=== PATIENT | male | born 1995 | race Hispanic/Latino ===

== ENCOUNTER 2022-12-20 21:26 | Emergency (ER) | payer SELFPAY ==
[2022-12-20 22:02] VITALS: BP 144/80; PULSE 88; RESP 15; TEMP 37.1; O2SAT 100
--- NOTE | 2022-12-21 02:10 | ED.GENADULT ---
HPI - General Adult General Chief complaint: Unspecified Stated complaint: whole body pain Time Seen by Provider: 12/21/22 01:47 Source: patient Mode of arrival: ambulatory Limitations: no limitations History of Present Illness HPI narrative: Patient is a 27-year-old male who presents ED with multiple complaints. Patient is a daily IV fentanyl user. He states he injects mostly into his upper arms. He buys the needles off of [employer]. He last used approximately 5 hours prior to arrival to the ED. Patient states he has not been feeling well over the last 2 to 3 days. He complains of intermittent dizziness described as though the room is spinning, intermittent chest pain, diffuse myalgias, chills, subjective fevers. He has not actually documented a fever. Denies any shortness of breath, nausea, vomiting. Denies cough or cold symptoms. Denies sick contacts. Patient states he is concerned he has a bacterial infection from using the drugs. He does complain of a chronic wound to his right lower leg which he reports is from injecting 3 months ago. Related Data Allergies Allergy/AdvReac Type Severity Reaction Status Date / Time No Known Allergies Allergy Verified 12/20/22 22:06 Review of Systems Review of Systems: CONSTITUTIONAL: See HPI. EYES: Denies visual changes, redness, or discharge. ENT: Denies rhinorrhea, congestion, sore throat, or otalgia. CARDIOVASCULAR: See HPI. RESPIRATORY: Denies cough or dyspnea. GASTROINTESTINAL: Denies abdominal pain, nausea, vomiting, or diarrhea. GENITOURINARY: Denies dysuria or hematuria. SKIN: See HPI. MUSCULOSKELETAL: Denies back pain, joint pain, or myalgia. NEUROLOGIC: See HPI. All systems reviewed & are unremarkable except as noted in HPI and below [facility] Social History Social History (Updated 12/21/22 @ 03:23 by Noelle Michelle PA-C) Substance use: current Substance use type: IV drugs Exam Narrative: GENERAL: Well appearing, thin, non-toxic, in no acute distress. HEAD: Normocephalic, atraumatic. NECK: Supple. No adenopathy, no masses. RESPIRATORY: Airway patent, respirations nonlabored. Clear to auscultation bilaterally, no rales, rhonchi, wheezing. CARDIOVASCULAR: Regular rate and rhythm without murmurs, rubs, or gallops. Radial pulses 2+ and equal bilaterally. ABDOMINAL: Soft, nontender, nondistended, no hepatosplenomegaly. Normoactive BS. MUSCULOSKELETAL: Moves all extremities. Strength/ROM intact without gross deformities. SKIN: Warm, dry, normal color. No rashes. Small scabbed region to right lower leg, no evidence for infection, no surrounding erythema, no focal fluctuance or abscess. Scattered track batista to upper extremities, particularly left upper arm/axillary region. Again, no evidence of abscess, focal fluctuance, induration, cellulitis. NEURO: A&O X3. Speech clear. Cranial nerves II-XII grossly intact. Steady gait. No ataxic movements. Somewhat tremulous. PSYCHIATRIC: Flat affect, depressed mood, avoids eye contact. Normal interaction. Course Vital Signs Vital signs: Vital Signs Temperature 98.7 F 12/20/22 22:02 Pulse Rate 88 12/20/22 22:02 Respiratory Rate 15 12/20/22 22:02 Blood Pressure 144/80 H 12/20/22 22:02 Pulse Oximetry 100 12/20/22 22:02 Oxygen Delivery Room Air 12/20/22 22:02 Temperature 98.7 F 12/20/22 22:02 Pulse Rate 88 12/20/22 22:02 Respiratory Rate 15 12/20/22 22:02 Blood Pressure 144/80 H 12/20/22 22:02 Pulse Oximetry 100 12/20/22 22:02 Oxygen Delivery Room Air 12/20/22 22:02 Medical Decision Making [facility] Narrative Medical decision making narrative: Patient presented to ED with multiple vague complaints, history of IV drug abuse. Patient concerned for bacterial infection. Wanting blood work. I discussed the limitations of blood work and how it may not give specific findings, however patient would like to proceed. Fluids and meclizine started for dizziness. Basic laboratory s
[2022-12-21] MEDS: SODIUM CHLORIDE 0.9% IV 1,000 ML 999 ML IV CONT (03:03)
[2022-12-21] MEDS: MECLIZINE HCL 25 MG TABLET PO (03:03)
[2022-12-21 03:04] LABS: Basophils Percent Auto 0.5 % (0.2-1.2); Eosinophils Percent Auto 0.3 % (0-4.4); Hematocrit 38.8 % (42.0-52.0); Hemoglobin 13.2 g/dL (14.0-18.0); Immature Granulocyte Absolute 0.02 K/mm3 (0.00-0.031); Immature Granulocyte Percent A 0.3 % (0-0.5); Lymphocytes Absolute Auto 2.77 K/mm3 (0.9-3.2); Lymphocytes Percent Auto 35.2 % (18.3-44.2); Mean Corpuscular Hemoglobin 29.1 pg (26-34); Mean Corpuscular Volume 85.5 fl (80-100); Mean Platelet Volume 9.7 fl (7.4-10.4); Monocytes Absolute Auto 0.6 K/mm3 (0.1-0.6); Monocytes Percent Auto 7.8 % (2.6-8.5); Neutrophils Absolute Auto 4.4 K/mm3 (1.3-6.7); Neutrophils Percent Auto 55.9 % (45.5-73.1); Platelet Count Result 301 k/mm3 (150-375); Red Blood Count 4.54 M/mm3 (4.6-6.20); Red Cell Distribution Width 12.7 % (11.5-14.5); White Blood Count 7.9 K/mm3 (4.5-10.0)
[2022-12-21 03:15] LABS: Alanine Aminotransferase 17 U/L (6-50); Albumin Level 4.4 g/dL (3.5-5.1); Alkaline Phosphatase 117 U/L (38-126); Anion Gap 7 mmol/L (8-16); Aspartate Amino Transferase 25 U/L (17-59); Bilirubin,Total 0.6 mg/dL (0.2-1.3); Blood Urea Nitrogen 8 mg/dL (9-20); Carbon Dioxide 28 mmol/L (22-30); Chloride 104 mmol/L (98-107); Estimated CRCL calculation 106 ml/min; Estimated Glomerular Filt Rate > 60; Glucose 111 mg/dL (65-110); Magnesium 2.2 mg/dL (1.6-2.3); Potassium 3.6 mmol/L (3.4-5.0); Sodium 139 mmol/L (137-145)
--- NOTE | 2022-12-21 03:21 | ECG_ITS ---
Measurements Intervals [place] Rate: 71 P: 75 VA: 167 QRS: 75 QRSD: 90 T: 39 QT: 371 QTc: 403 Interpretive Statements SINUS RHYTHM NORMAL ECG NO PREVIOUS ECG AVAILABLE FOR COMPARISON Electronically Signed On 12-21-2022 6:50:37 CDT by Talib Davison D.O.
[2022-12-21 03:39] LABS: Influenza A QL RT-PCR Negative (Negative); Influenza B QL RT-PCR Negative (Negative); SARS-CoV-2 RNA PCR Negative (Negative)
[2022-12-21 03:43] LABS: Troponin I < 0.012 ng/mL (0.000-0.034)
[2022-12-21 04:03] VITALS: BP 118/72; PULSE 80; RESP 15; O2SAT 100
== END 2022-12-21 04:08 | disposition home or self-care (01) ==
PROVIDERS: Emergency Provider Physician Assistant
DX: R42 Dizziness and giddiness (principal); R07.89 Other chest pain; F11.10 Opioid abuse, uncomplicated
CPT/HCPCS: 36415; 80053; 83735; 84484; 85025; 87636; 93005; 96360; 99284; A9270; J7030